=== PATIENT | male | born 1955 | race African-American/Black ===

== ENCOUNTER 2018-01-24 23:17 | Emergency (ER) | payer MEDICARE, OTHER ==
[~2018-01-24] VITALS: Ht 170.2 cm; Wt 56.7 kg
[2018-01-24 23:48] VITALS: BP 159/68
[2018-01-25] MEDS ORDERED: Norco 5mg/325mg tab ORAL ONE
[2018-01-25] MEDS ORDERED: NORCO 10-325 T1 EACH ORAL (01:00)
[2018-01-25 01:17] VITALS: BP 130/86
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
--- NOTE | 2018-01-25 11:19 | Diagnostic Imaging Report ---
Indication: Knee Pain 3 views of the left knee were obtained. Findings: There is no acute fracture or malalignment. There is narrowing of the medial compartment demonstrated. The bones are osteopenic. No obvious joint effusion identified. Vascular calcification noted. Impression: Negative for acute injury
--- NOTE | 2018-01-25 11:20 | Diagnostic Imaging Report ---
Indication: Back pain Comparison: None Findings: 2 views of the thoracic spine were obtained. Normal alignment is demonstrated. No obvious fracture identified. Narrowing of intervertebral disc and endplate spurs noted multiple levels. Bones are osteopenic. Soft tissues are unremarkable. IMPRESSION: No acute injury appreciated.
--- NOTE | 2018-01-25 11:21 | Diagnostic Imaging Report ---
Indication: Chest pain Comparison: None A single view chest radiograph was obtained. Findings: Lungs are clear. Lungs may be slightly hyperexpanded. Heart size is normal. Bones are unremarkable IMPRESSION: COPD suspected
== END 2018-01-25 01:17 | disposition home or self-care (01) ==
LOC: EMR 23:59
DX: S80.02XA Contusion of left knee, initial encounter (principal); S20.219A Contusion of unspecified front wall of thorax, initial encounter; V09.9XXA Pedestrian injured in unspecified transport accident, initial encounter; Y92.414 Local residential or business street as the place of occurrence of the external cause; I10 Essential (primary) hypertension
CPT/HCPCS: 71045; 72070; 99284